=== PATIENT | male | born 1985 | race Caucasian/White ===

== ENCOUNTER 2018-04-18 12:06 | Emergency (ER) | payer SELFPAY ==
[~2018-04-18] VITALS: Ht 170.2 cm; Wt 79.5 kg
[2018-04-18] MEDS ORDERED: LIDOCAINE 1% 10 ML VIAL INJ ONE (13:00)
[2018-04-18] MEDS ORDERED: KETOROLAC TROMETHAMINE 60 MG/2 ML VIAL IM ONE (13:30)
[2018-04-18 15:36] VITALS: BP 125/74
== END 2018-04-18 15:45 | disposition home or self-care (01) ==
LOC: EMS 12:09
DX: S61.412A Laceration without foreign body of left hand, initial encounter (principal); S20.212A Contusion of left front wall of thorax, initial encounter; R03.0 Elevated blood-pressure reading, without diagnosis of hypertension; W45.8XXA Other foreign body or object entering through skin, initial encounter; Y93.89 Activity, other specified; Y92.89 Other specified places as the place of occurrence of the external cause; Y99.8 Other external cause status
CPT/HCPCS: 12002; 71045; 96372; 99283; J1885; J3490

== ENCOUNTER 2018-04-20 14:57 | Emergency (ER) | payer SELFPAY ==
[~2018-04-20] VITALS: Ht 170.2 cm; Wt 72.7 kg
[2018-04-20 16:21] VITALS: BP 132/78
== END 2018-04-20 16:22 | disposition home or self-care (01) ==
LOC: EMS 14:58
DX: S61.412D Laceration without foreign body of left hand, subsequent encounter (principal); W45.8XXD Other foreign body or object entering through skin, subsequent encounter

== ENCOUNTER 2018-04-28 09:16 | Emergency (ER) | payer SELFPAY ==
[~2018-04-28] VITALS: Ht 177.8 cm; Wt 90.9 kg
[2018-04-28 09:20] VITALS: BP 142/81
== END 2018-04-28 10:00 | disposition left against medical advice (07) ==
LOC: EMS 09:17
DX: Z48.02 Encounter for removal of sutures (principal); Z53.21 Procedure and treatment not carried out due to patient leaving prior to being seen by health care provider